=== PATIENT | female | born 1955 | race African-American/Black ===

== ENCOUNTER → 2018-07-20 | Outpatient (CLI) | payer MEDICARE, OTHER | LOC: MC.RAD 09:23 | DX: N63.20 Unspecified lump in the left breast, unspecified quadrant (principal); Z98.890 Other specified postprocedural states; Z92.3 Personal history of irradiation; Z85.3 Personal history of malignant neoplasm of breast ==

== ENCOUNTER → 2018-07-21 | Outpatient (CLI) | payer MEDICARE, OTHER | LOC: COL.RAD 09:48 | DX: C50.412 Malignant neoplasm of upper-outer quadrant of left female breast (principal); E11.9 Type 2 diabetes mellitus without complications; R59.0 Localized enlarged lymph nodes; E07.9 Disorder of thyroid, unspecified; N28.1 Cyst of kidney, acquired; Z90.710 Acquired absence of both cervix and uterus; Z98.890 Other specified postprocedural states | CPT/HCPCS: A9503; Q9967 ==

== ENCOUNTER → 2018-08-09 | Outpatient (CLI) | payer MEDICARE, OTHER | LOC: COL.RAD 10:30 | DX: C50.412 Malignant neoplasm of upper-outer quadrant of left female breast (principal); E04.9 Nontoxic goiter, unspecified ==

== ENCOUNTER 2019-09-07 07:30 | Outpatient (RCR) | payer MEDICARE, OTHER ==
[2019-09-07] VITALS (10 sets, daily range): BP systolic 122–151; BP diastolic 72–81; PULSE 70–91; TEMP 98.4–99.2
[~2019-09-07] VITALS: Ht 162.6 cm; Wt 81.7 kg
[2019-09-07] MEDS ORDERED: NORVASC 10MG10 MG PO (09:20)
[2019-09-07] MEDS ORDERED: MICARDIS HCT 251 TAB PO (09:20)
[2019-09-07] MEDS ORDERED: TOPROL XL 50MG50 MG PO (09:21)
[2019-09-07] MEDS ORDERED: PREDNISONE 5MG5 MG (09:23)
[2019-09-07] MEDS ORDERED: JANUVIA25 MG PO (09:23)
[2019-09-07] MEDS ORDERED: OXYCONTIN 20MG20 MG PO (09:24)
[2019-09-07] MEDS ORDERED: FOLIC ACID 11 MG/TA1 PO (09:24)
[2019-09-07] MEDS ORDERED: DOXYCYCLINE 10100 MG PO (09:25)
[2019-09-07] MEDS ORDERED: ROXICODONE 55 MG/TAB PO (09:26)
--- NOTE | 2019-09-07 12:45 | NUR ---
PT ATE LUNCH, AMBULATED TO B/R X1, INFUSION COMPLETED NO C/O IV D'CD INTACT AND PT TAKEN TO IN LOBBY VIA W/C
== END 2019-09-07 12:50 ==
LOC: EUO 07:30
DX: C50.412 Malignant neoplasm of upper-outer quadrant of left female breast (principal)
CPT/HCPCS: J7050; P9016

== ENCOUNTER → 2021-08-31 | Outpatient (CLI) | payer MEDICARE, OTHER ==
[~2021-08-31] MED LIST: DOXYCYCLINE 10100 MG PO; FOLIC ACID 11 MG/TA1 PO; JANUVIA25 MG PO; MICARDIS HCT 251 TAB PO; NORVASC 10MG10 MG PO; OXYCONTIN 20MG20 MG PO; PREDNISONE 5MG5 MG; ROXICODONE 55 MG/TAB PO; TOPROL XL 50MG50 MG PO
== END ==
LOC: COL.RAD 07:30
DX: C50.412 Malignant neoplasm of upper-outer quadrant of left female breast (principal); E11.9 Type 2 diabetes mellitus without complications
CPT/HCPCS: A9503; Q9967